=== PATIENT | male | born 1960 | race African-American/Black ===

== ENCOUNTER 2017-03-13 21:40 | Emergency (ER) | payer OTHER ==
[~2017-03-13 21:40] MED LIST: DELTASONE10 MG PO; FLEXERIL10 MG PO; H PO; LEXAPRO10 MG PO; NORCO 5/325 TAB1 TAB PO; NORCO 7.5/325 T1 TAB PO; OXYCONTIN10 M1 PO; ZESTORETIC1 TAB PO
[2017-03-13] MEDS ORDERED: PRINIVIL20 M1 PO (21:55)
[2017-03-13] MEDS ORDERED: PERCOCET 5-3251 EACH PO (22:48)
[2017-03-13] MEDS ORDERED: ERYTHROMYCIN1 GM OP (22:48)
== END 2017-03-13 23:02 ==
LOC: EDMED 21:40
DX: H16.9 Unspecified keratitis (principal); I10 Essential (primary) hypertension; Z79.899 Other long term (current) drug therapy; F17.200 Nicotine dependence, unspecified, uncomplicated

== ENCOUNTER 2017-04-18 19:38 | Emergency (ER) | payer OTHER ==
[~2017-04-18 19:38] MED LIST changes: +ERYTHROMYCIN1 GM OP; +PERCOCET 5-3251 EACH PO; +PRINIVIL20 M1 PO
== END 2017-04-18 20:58 ==
LOC: EDMED 19:38
PROC: 2W3RXYZ Immobilization of Left Lower Leg using Other Device (ICD-10-PCS; principal; 2017-04-18)
DX: S93.402A Sprain of unspecified ligament of left ankle, initial encounter (principal); I10 Essential (primary) hypertension; Z79.899 Other long term (current) drug therapy; Z98.890 Other specified postprocedural states; F17.200 Nicotine dependence, unspecified, uncomplicated; V18.4XXA Pedal cycle driver injured in noncollision transport accident in traffic accident, initial encounter; Y93.55 Activity, bike riding; Y92.410 Unspecified street and highway as the place of occurrence of the external cause; Y99.8 Other external cause status